=== PATIENT | male | born 1990 | race Caucasian/White ===

== ENCOUNTER → 2017-11-23 11:27 | Outpatient (CLI) | payer BC, SELFPAY ==
[2016-12-06 14:15] VITALS: BMI 20.2
[2016-12-06 17:24] VITALS: BP 110/65
--- NOTE | 2017-11-23 11:35 | RAD_ITS ---
STUDY: X-RAY CHEST REASON FOR EXAM: Male, 27 years old. Atypical chest pain. TECHNIQUE: PA and lateral views of the chest. COMPARISON: Prior comparison studies are not available for review at this time. FINDINGS: The lungs are clear and expanded. There is no demonstrated pleural abnormality. Normal size heart. Normal mediastinum and dawson. Normal visualized pulmonary arteries. Normal visualized aortic arch and descending thoracic aorta. Normal visualized thoracic spine. Normal visualized ribs, clavicles, and shoulders. There is no demonstrated abnormality of the visualized soft tissue structures of the upper abdomen. RAD/Chest PA and Lateral IMPRESSION: No active pulmonary disease. Electronically Signed: Sebas Lyman MD at 3:15 EST Tel , Service support ,
[2017-11-23 14:42] LABS: T4 Free Direct 1.24 ng/dL (0.76-1.46); Thyroid Stim Hormone (TSH) 0.64 uIU/mL (0.358-3.74)
== END ==
PROVIDERS: Family Provider Family Medicine; PCP Family Medicine; Visit Provider Family Medicine
DX: R07.89 Other chest pain (principal); R94.6 Abnormal results of thyroid function studies
CPT/HCPCS: 36415; 71046; 84439; 84443

== ENCOUNTER → 2017-12-29 11:00 | Outpatient (CLI) | payer BC, SELFPAY ==
--- NOTE | 2017-12-29 11:02 | ECHOD_ITS ---
Reason For Study: shest pain Procedure This was a 2D Doppler, Color Flow transthoracic echocardiogram. Exam performed in department. Left Ventricle Normal size and thickness. The estimated ejection fraction is 65 %. No regional wall motion abnormalities noted. Right Ventricle Normal size and thickness. Normal systolic function. Atria Normal left atrium. Normal right atrium. Normal atrial septum. Mitral Valve The mitral valve is structurally normal. No prolapse or stenosis seen. Equivocal mitral valve prolapse. Tricuspid Valve Normal tricuspid valve. Trivial tricuspid valve insufficiency. Right ventricular systolic pressure estimated to be 17 mmHg. Aortic Valve Normal aortic valve. Trisinus/trileaflet aortic valve. Pulmonic Valve Normal pulmonic valve. Great Vessels Normal aortic root. Normal arch. Normal inferior vena cava. Inferior vena cava collapse with sniff. Pericardium/Pleural No pericardial effusion. MMode/2D Measurements & Calculations LVIDd: 5.6 cm IVSd: 0.88 cm Ao root diam: 2.8 cm LVIDs: 3.3 cm LVPWd: 0.96 cm LA dimension: 3.4 cm RVDd: 3.8 cm FS: 41.9 % LAV(MOD-bp): 57.5 ml LA A4 area: 18.9 cm2 RA A4 area: 13.2 cm2 LAV(MOD-bp) Indexed: 28.7 ml/m2 LAV(MOD-sp2): 55.5 ml LAV(MOD-sp4): 49.1 ml Doppler Measurements & Calculations MV E max aaron: 85.5 cm/sec Lat Peak E' Aaron: 21.3 cm/sec Med Peak E' Aaron: 12.8 cm/sec MV A max aaron: 40.2 cm/sec E/E' lat: 4.0 E/E' med: 6.7 MV E/A: 2.1 Ao V2 max: 121.3 cm/sec LV V1 max: 107.7 cm/sec PA V2 max: 105.9 cm/sec Ao max P.9 mmHg LV V1 max P.6 mmHg TR max aaron: 172.4 cm/sec TR max P.9 mmHg Interpretation Summary The estimated ejection fraction is 65 %. Equivocal mitral valve prolapse. Right ventricular systolic pressure estimated to be 17 mmHg. There is no comparison study available. Ordering Physician: Jameel Avendano Referring Physician: Jameel Avendano Performed By: Whitney Cerna, YIFAN, RVT
== END ==
PROVIDERS: Family Provider Family Medicine; PCP Family Medicine; Visit Provider Family Medicine
DX: R07.89 Other chest pain (principal)
CPT/HCPCS: 93306

== ENCOUNTER → 2019-05-02 | Outpatient (CLI) | payer BC, SELFPAY ==
[2019-05-02 10:37] LABS: Hemoglobin 14.4 g/dl (13.0-16.5); Mean Corp Hgb Conc 35.1 g/gl (32-36); Mean Corpuscular Hgb 28.9 pg (27.0-32.0); Mean Corpuscular Volume 82.3 fL (80-94); Mean Platelet Vol. 10.1 fl (6.2-12.0); Platelet Count 243 K/mm3 (150-450); RBC Distribution Width CV 12.3 % (11.6-14.6); RBC Distribution Width SD 36.5 fl (35.1-43.9); Red Blood Count 4.98 M/mm3 (4.6-6.2); White Blood Count 5.6 K/mm3 (4.4-11.0)
[2019-05-02 10:38] LABS: Scan Indicated on CBC? Y/N NO
[2019-05-02 11:01] LABS: Anion Gap 6 (5-15); BUN 14 mg/dL (7-18); BUN/Creat Ratio 13.3 RATIO (10-20); Calcium,Total 9.3 mg/dL (8.5-10.1); Chloride 108 mmol/L (98-107); Creatinine, Serum 1.05 mg/dL (0.70-1.30); EST Glomerular Filtration Rate 88 mL/min (>60); Est Glom Filt Rate - Afr Amer 107 mL/min (>60); Glucose 93 mg/dL (74-106); Potassium 3.9 mmol/L (3.5-5.1); Sodium Level 143 mmol/L (136-145); Thyroid Stim Hormone (TSH) 0.45 uIU/mL (0.358-3.74)
== END | disposition home or self-care (01) ==
LOC: MTLAB 07:56
PROVIDERS: Family Provider Family Medicine; PCP Family Medicine; Referring Provider Family Medicine; Visit Provider Family Medicine
DX: Z00.00 Encounter for general adult medical examination without abnormal findings (principal); R79.89 Other specified abnormal findings of blood chemistry
CPT/HCPCS: 36415; 80048; 84443; 85027

== ENCOUNTER → 2019-05-27 | Outpatient (CLI) | payer BC, SELFPAY ==
[2016-12-06 14:15] VITALS: BMI 20.2
[2019-05-27 18:46] LABS: Vitamin B12 639 pg/mL (211-911); Vitamin D,25 Hydroxy 26.1 ng/mL (29.95-100.01)
[2019-05-27 20:52] LABS: Estradiol 17.6 pg/mL; Free T3 2.9 pg/mL (2.18-3.98); PSA,Total - Annual Screen 0.96 ng/mL (0.00-4.00)
[2019-05-31 09:07] LABS: Testosterone, % Free 2.86 % (1.50-4.20); Testosterone, Free 7.26 ng/dL (5.00-21.00)
[2019-05-31 15:59] LABS: Testosterone, Total 254 ng/dL (264-916); Thyroid Peroxidase AB 12 IU/mL (0-34)
== END | disposition home or self-care (01) ==
LOC: LAB.FUTURE 16:41
PROVIDERS: Family Provider Family Medicine; PCP Family Medicine; Referring Provider Family Medicine
DX: E34.9 Endocrine disorder, unspecified (principal); R53.83 Other fatigue; E03.9 Hypothyroidism, unspecified; E55.9 Vitamin D deficiency, unspecified; Z12.5 Encounter for screening for malignant neoplasm of prostate
CPT/HCPCS: 36415; 82306; 82607; 82670; 84153; 84402; 84403; 84481; 86376; G0103

== ENCOUNTER → 2019-07-29 14:17 | Outpatient (CLI) | payer BC, SELFPAY ==
[2019-07-29 15:41] LABS: Absolute Lymphocyte Count 1.29 X10^3/uL (0.83-4.51); Absolute Neutrophil Count 2.6 X10^3/uL (2.0-7.7); Basophil# 0.05 X10^3/uL; Basophil% 1.1 % (0-1); Eosinophil# 0.22 X10^3/uL; Eosinophils% 4.8 % (0-5); Hematocrit 41.4 % (40-54); Hemoglobin 14.2 g/dL (13.0-16.5); Lymphocyte # 1.29 X10^3/ul (4.0); Mean Corp Hgb Conc 34.3 g/dL (32-36); Mean Corpuscular Volume 84.5 fL (80-94); Mean Platelet Vol. 10.4 fl (6.2-12.0); Monocyte# 0.47 X10^3/uL; Monocyte% 10.2 % (0-10); NRBC Flagged by Analyzer 0 % (0-5); Neutrophil # 2.56 X10^3/uL (2.7-7.7); Neutrophil % 55.5 % (47-70); Platelet Count 255 K/mm3 (150-450); RBC Distribution Width SD 36.1 fl (35.1-43.9); White Blood Count 4.6 K/mm3 (4.4-11.0)
[2019-07-29 16:01] LABS: Estradiol < 11.0 pg/mL
[2019-08-02 09:57] LABS: Testosterone, Free 4.38 ng/dL (5.00-21.00)
[2019-08-02 16:16] LABS: Testosterone, % Free 2.77 % (1.50-4.20); Testosterone, Total 158 ng/dL (264-916)
== END ==
PROVIDERS: Family Provider Family Medicine; PCP Family Medicine; Referring Provider Family Medicine
DX: E29.1 Testicular hypofunction (principal)
CPT/HCPCS: 36415; 82670; 84402; 84403; 85025

== ENCOUNTER → 2020-03-19 10:51 | Outpatient (CLI) | payer BC, SELFPAY ==
[2020-03-08 14:06] VITALS: BMI 20.7
== END ==
PROVIDERS: PCP Family Medicine; Referring Provider Internal Medicine Cardiovascular Disease; Visit Provider Internal Medicine Cardiovascular Disease
DX: R00.2 Palpitations (principal)
CPT/HCPCS: 93225; 93226